=== PATIENT | female | born 1935 | race Caucasian/White ===

== ENCOUNTER 2018-05-14 11:54 | Inpatient (IN) ==
[2018-05-14] MEDS ORDERED: Ondansetron ODT 4 MG TAB.RAPDIS SL PRN (14:25)
[2018-05-14] MEDS ORDERED: Acetaminophen 325 MG TABLET PO PRN (16:02)
[2018-05-14] MEDS: Apixaban 5 MG TABLET PO SCH (20:40)
[2018-05-14] MEDS: cephALEXin 500 MG CAPSULE PO SCH (20:40)
[2018-05-15 05:38] LABS: Basophils % 0.5 %; Eosinophils # 0.3 K/mcL (0.0-0.6); Hematocrit 31.7 % (35.3-44.9); Hemoglobin 10.4 g/dL (11.5-15.4); Immature Granulocytes % 0.9 % (0-4); Lymphocytes # 0.6 K/mcL (0.6-4.6); Lymphocytes % 9.9 %; Mean Corpuscular HGB Conc 32.8 g/dL (31.6-35.5); Mean Corpuscular Hemoglobin 30.6 pg (28.0-33.3); Mean Corpuscular Volume 93.2 fL (83.0-100.0); Mean Platelet Volume 9.1 fL (9.4-12.4); Monocytes # 0.4 K/mcL (0.0-1.3); Monocytes % 6.1 %; Neutrophils # 5.1 K/mcL (1.6-8.9); Platelet Count 372 K/mcL (140-400); Red Cell Distribution Width 13.2 % (11.5-14.5); Segmented Neutrophils % 78.6 %
[2018-05-15 05:59] LABS: BUN/Creatinine Ratio 13 (6-26); Blood Urea Nitrogen 7 mg/dL (8-23); Calcium 8.2 mg/dL (8.6-10.3); Carbon Dioxide 30 mEq/L (23-29); Chloride 102 mEq/L (98-107); Glucose 92 mg/dL (70-105); Osmolality,Calculated 280 (280-300); Potassium 3.6 mEq/L (3.5-5.1); Sodium 136 mEq/L (136-145); eGFR For Non-African Americans > 60 (> 60)
[2018-05-15] MEDS: Diltiazem CD (24hr) 180 MG CAPSULE PO SCH (11:22)
[2018-05-15] MEDS: Apixaban 5 MG TABLET PO SCH ×2 (11:22→21:29)
[2018-05-15] MEDS: cephALEXin 500 MG CAPSULE PO SCH ×2 (11:22→21:30)
--- NOTE | 2018-05-15 11:25 | Internal Med History&Physical ---
Addendum entered and electronically signed by Raquel Rey 05/20/18 15:52: For this encounter, I have reviewed the MACHINING ASSOCIATE documentation, treatment plan, and medical decision making; and I have had face to face time with this patient. Addendum entered and electronically signed by Raquel Rey 05/15/18 16:55: I have personally performed a face to face evaluation on this patient. I have reviewed and agree with the care plan. Pt has recent successful surgical repair of SBO here for rehab swing she is not eating well and has low bmi she says she feels hungry today but edentulous so hard to chew foods will order soft diet pt to bring in her foot brace use here that she has for chronic left foot drop she is tolerating her new abixaban for a fib no bleeding probs prior to recent sbo pt states did not take medications Original Note: Date of Encounter: 05/15/18 Time of Encounter: 11:23 Assessment and Plan (1) Small bowel obstruction due to adhesions Current visit: Yes Status: Acute Patient was surgically treated at [facility] with a exploratory lap and lysis of adhesions due to a small bowel obstruction. Patient recovered well and currently admitted to this facility for rehabilitation due to her deconditioning. Patient currently denies any nausea or discomforts. Surgical incision appears healthy. Patient does state she has had no BM in the last few days, but noted normal bowel sounds. We will review patient's current laxatives. Patient being evaluated by physical therapy with recommendations pending. We will continue with current plan of care. (2) GERD (gastroesophageal reflux disease) Current visit: No Status: Chronic No current issues. We will continue with current medications. Qualifiers: Esophagitis presence: esophagitis presence not specified Qualified Code(s): K21.9 - Gastro-esophageal reflux disease without esophagitis (3) Atrial fibrillation with RVR Current visit: No Status: Acute No acute issues. Currently patient's heart rate appears to be regular with a controlled rate less than 100. We will continue with current Cardizem. Vital signs stable. He denies any palpitations or chest discomforts. (4) Hypertension Current visit: No Status: Chronic Vital signs stable. We will continue with current medications. Qualifiers: Hypertension type: essential hypertension Qualified Code(s): I10 - Essential (primary) hypertension Internal Medicine - H&P: HPI Chief complaint: Small bowel obstruction Admitted From: Hospital to Hospital Transfer Plans for Post Hospital Care: Home History of present illness: Ms. Price is a 82 year old female , who was admitted to this facility due to deconditioning secondary to having a exploratory laparotomy resolving and lysis of adhesions. Patient was admitted at [facility] due to small bowel obstruction which progressed to surgical intervention. Patient also was treated for acute atrial fibrillation during her stay at [facility], which was resolved after starting on Cardizem. Patient continues on oral Cardizem at this time Patient currently is recovering well and currently denies any discomforts or shortness of breath. Denies any chest discomforts or palpitations. Patient does have complaint of no BM in several days but states that she has been passing flatus. Patient currently is being evaluated by PT/OT with recommendations pending. Afebrile. Past Med Surg Social Fam HX - Past Medical History Medical history: no medical history, atrial fibrillation Additional medical history: bowel obstruction with surgical repair Psychiatric history: no psych history - Past Surgical History Surgical History: non-contributory - Social History Smoking Status: Never smoker Smokeless Tobacco Status: No Alcohol use: none Drug use: none - Family History Mother Living Status: Hx Family Cancer: Yes (blood cancer) Father Living Status: Hx Family Cancer: Yes (prostate) Brother Living Status: Internal Medicine - H&P: Meds Apixaban [Eliquis] 2.5 mg PO BID 30 Days #60 tablet 05/11/18 [Rx] Diltiazem CD (24hr) [Cardizem CD] 180 mg PO DAILY 30 Days #30 cap.er.24h 05/11/18 [Rx] Ondansetron ODT [Zofran ODT] 4 mg SL Q6HR PRN 30 Days #120 tab.rapdis 05/11/18 [Rx] cephALEXin [Keflex] 500 mg PO BID 6 Days #12 capsule 05/11/18 [Rx] Allergy/AdvReac Type Severity Reaction Status Date / Time No Known Allergies Allergy Verified 04/23/18 09:22 All Systems PM: A 10-system review of systems was performed and is negative for pertinent findings except as documented above in the HPI. - Constitutional Constitutional: no chills, no fever(s), no night sweats - EENT Eyes: no change in vision, no discharge, no pain, no photophobia Ears: no ear discharge, no ear pain, no tinnitus Nose, mouth and throat: no dysphagia, no nasal discharge, no neck pain, no sore throat - Cardiovascular Cardiovascular ROS IM: as per HPI, no chest pain, no diaphoresis, no dyspnea, no lightheadedness, no palpitations, no syncope - Respiratory Respiratory: as per HPI, no cough, no dyspnea, no wheezing, no excessive phlegm production - Gastrointestinal Gastrointestinal: as per HPI, no abdominal pain, no diarrhea, no hematemesis, no hematochezia, no melena, no nausea, no vomiting - Genitourinary Genitourinary: no change in urinary stream, no dysuria, no flank pain, no hematuria - Musculoskeletal Musculoskeletal ROS IM: no numbness, no tingling - Integumentary Integumentary IM: no rash, no unusual bruising - Neurological Neurological ROS: no confusion, no convulsions, no focal weakness, no numbness, no tingling, no tremor(s) - Hematologic/Lymphatic Hematologic/Lymphatic: no easy bruising - Constitutional Vitals: Temp Pulse Resp BP Pulse Ox 98.9 F 80 16 116/67 98 05/15/18 10:55 05/15/18 10:55 05/15/18 10:55 05/15/18 10:55 05/15/18 10:55 General appearance: Present: A&O X 3, pleasant - Head Head exam: Present: atraumatic, normocephalic - Eye Eye exam: Present: PERRL, conjuntiva pink, sclera anicteric Pupils: Present: PERRL - Neck Neck exam general surgery: Present: supple, trachea midline. Absent: lymphadenopathy - Respiratory Respiratory exam: Present: CTAB. Absent: accessory muscle use, rales, rhonchi, wheezes - Cardiovascular Cardiovascular exam: Present: RRR, +S1, +S2. Absent: diastolic murmur, gallop, rubs, systolic murmur Additional comments: Vision currently has regular pulse with controlled rate less than 100 - GI/Abdominal GI/Abdominal exam: Present: normal bowel sounds, soft, no peritoneal signs. Absent: distended, tenderness Additional comments: Abdomen remains soft and nondistended with bowel sounds heard in all quadrants. Midline surgical incision appears dry and intact and healing well. - Extremities Exam Extremities exam: Present: warm, radial pulses palpable and symmetrical. Absent: calf tenderness, cyanotic, pedal edema - Neurological Exam Neurological exam: Present: CN II-XII intact, oriented X3, no focal deficits. Absent: pronater drift, facial droop, speech deficit - Skin Skin exam: Present: dry, intact Internal Med - H&P Results - Labs CBC & Chem 7: 05/15/18 05:20 05/15/18 05:20 Labs: Short CBC 05/15/18 Range/Units 05:20 WBC 6.4 (4.3-11.1) K/mcL Hgb 10.4 L (11.5-15.4) g/dL Hct 31.7 L (35.3-44.9) % Plt Count 372 (140-400) K/mcL Neutrophils # 5.1 (1.6-8.9) K/mcL BMP 05/15/18 05:20 Sodium 136 Potassium 3.6 Chloride 102 Carbon Dioxide 30 H BUN 7 L Creatinine 0.56 L Glucose 92 Calcium 8.2 L
[2018-05-15] MEDS ORDERED: Sennosides 8.6 MG TABLET PO SCH (21:00)
[2018-05-16 05:03] LABS: Hematocrit 30.4 % (35.3-44.9); Hemoglobin 10.1 g/dL (11.5-15.4); Mean Corpuscular HGB Conc 33.2 g/dL (31.6-35.5); Mean Corpuscular Hemoglobin 30.6 pg (28.0-33.3); Mean Corpuscular Volume 92.1 fL (83.0-100.0); Mean Platelet Volume 9.2 fL (9.4-12.4); Platelet Count 372 K/mcL (140-400); Red Cell Distribution Width 13.2 % (11.5-14.5)
[2018-05-16 05:18] LABS: Alanine Aminotransferase 36 Units/L (7-52); Albumin 2.5 g/dL (3.5-5.7); Alkaline Phosphatase 185 Units/L (34-104); Aspartate Amino Transferase 28 Units/L (13-39); BUN/Creatinine Ratio 15 (6-26); Bilirubin,Total 0.5 mg/dL (0.3-1.0); Blood Urea Nitrogen 8 mg/dL (8-23); Carbon Dioxide 30 mEq/L (23-29); Chloride 102 mEq/L (98-107); Globulin 2.6 g/dL (2.4-3.5); Glucose 94 mg/dL (70-105); Magnesium 1.9 mg/dL (1.6-2.6); Osmolality,Calculated 280 (280-300); Potassium 3.6 mEq/L (3.5-5.1); Sodium 136 mEq/L (136-145); Total Protein 5.1 g/dL (6.4-8.9); eGFR For Non-African Americans > 60 (> 60)
[2018-05-16] MEDS: Sennosides 8.6 MG TABLET PO PRN (09:53)
[2018-05-16] MEDS: cephALEXin 500 MG CAPSULE PO SCH ×2 (09:53→23:05)
[2018-05-16] MEDS: Apixaban 5 MG TABLET PO SCH ×2 (09:53→23:06)
[2018-05-16] MEDS: Diltiazem CD (24hr) 180 MG CAPSULE PO SCH (09:53)
--- NOTE | 2018-05-16 10:59 | Internal Med Progress Note ---
Addendum entered and electronically signed by Raquel Rey 05/20/18 15:49: For this encounter, I have reviewed the KENNEL SUPERVISOR documentation, treatment plan, and medical decision making; and I have had face to face time with this patient. Original Note: Date of Encounter: 05/16/18 Time of Encounter: 10:56 - Assessment and plan (1) Small bowel obstruction due to adhesions Current Visit: Yes Status: Acute Assessment and plan: No acute issues. Patient's surgical incision remains dry and intact and appears healthy. Patient has been eating well and has been passing gas and had a BM yesterday. Abdomen appears healthy. We will continue with current plan of care. Physical therapy progressing well. Afebrile (2) GERD (gastroesophageal reflux disease) Current Visit: No Status: Chronic Assessment and plan: No acute issues. Patient denies any reflux. We will continue with current medications. Qualifiers: Esophagitis presence: esophagitis presence not specified Qualified Code(s): K21.9 - Gastro-esophageal reflux disease without esophagitis (3) Atrial fibrillation with RVR Current Visit: No Status: Acute Assessment and plan: No acute issues. Patient's heart rate remains with a ventricular controlled rate less than 100. Patient continues on Cardizem. Vital signs stable (4) Hypertension Current Visit: No Status: Chronic Assessment and plan: Vital signs stable. We will continue with current medications. Qualifiers: Hypertension type: essential hypertension Qualified Code(s): I10 - Essential (primary) hypertension (5) Acute urinary retention Current Visit: No Status: Acute Assessment and plan: Patient continues a Dickerson catheter placed with cardiology urine received. Patient has follow-up with urology in the upcoming week. - Time Spent With Patient less than 15 minutes - Subjective Interval history: Appears relaxed and currently denies any discomforts or shortness of breath. Patient states that she has been eating well. Patient states she had a bowel movement yesterday and has been passing gas. Patient states that physical therapy has been progressing well for her. - Constitutional Vitals: Temp Pulse Resp BP Pulse Ox 98.7 F 81 12 125/55 95 05/16/18 07:18 05/16/18 07:18 05/16/18 07:18 05/16/18 07:18 05/16/18 07:18 General appearance: Present: A&O X 3, pleasant - Head Head exam: Present: atraumatic, normocephalic - Eye Eye exam: Present: PERRL, conjuntiva pink, sclera anicteric Pupils: Present: PERRL - Neck Neck exam general surgery: Present: supple, trachea midline. Absent: lymphadenopathy - Respiratory Respiratory exam: Present: CTAB. Absent: accessory muscle use, rales, rhonchi, wheezes - Cardiovascular Cardiovascular exam: Present: RRR, +S1, +S2. Absent: diastolic murmur, gallop, rubs, systolic murmur - GI/Abdominal GI/Abdominal exam: Present: normal bowel sounds, soft, no peritoneal signs. Absent: distended, tenderness Additional comments: Midline surgical incision appears dry and intact. Abdomen remains soft and nondistended with bowel sounds all quadrants. - Extremities Exam Extremities exam: Present: warm, radial pulses palpable and symmetrical. Absent: calf tenderness, cyanotic, pedal edema - Neurological Exam Neurological exam: Present: CN II-XII intact, oriented X3, no focal deficits. Absent: pronater drift, facial droop, speech deficit - Skin Skin exam: Present: dry, intact Internal Medicine: Result - Labs CBC & Chem 7: 05/16/18 04:29 05/16/18 04:29 Labs: Short CBC 05/16/18 Range/Units 04:29 WBC 5.9 (4.3-11.1) K/mcL Hgb 10.1 L (11.5-15.4) g/dL Hct 30.4 L (35.3-44.9) % Plt Count 372 (140-400) K/mcL BMP 05/16/18 04:29 Sodium 136 Potassium 3.6 Chloride 102 Carbon Dioxide 30 H BUN 8 Creatinine 0.54 L Glucose 94 Calcium 8.0 L Liver Function 05/16/18 Range/Units 04:29 Total Bilirubin 0.5 (0.3-1.0) mg/dL AST 28 (13-39) Units/L ALT 36 (7-52) Units/L Alkaline Phosphatase 185 H (34-104) Units/L Albumin 2.5 L (3.5-5.7) g/dL Consult Discharge Plan - Plan Referrals: Florentino Gutierrez DO [Partnered Physician] - 06/13/18 11:30 am ([facility] follow up Afib) NONE,PCP [Primary Care Provider] -
[2018-05-17] MEDS: Diltiazem CD (24hr) 180 MG CAPSULE PO SCH (08:47)
[2018-05-17] MEDS: cephALEXin 500 MG CAPSULE PO SCH ×2 (08:47→19:49)
[2018-05-17] MEDS: Apixaban 5 MG TABLET PO SCH ×2 (08:47→19:49)
--- NOTE | 2018-05-17 12:33 | Internal Med Progress Note ---
Addendum entered and electronically signed by Raquel Rey 05/20/18 15:49: For this encounter, I have reviewed the TRUCKER HAND documentation, treatment plan, and medical decision making; and I have had face to face time with this patient. Original Note: Date of Encounter: 05/17/18 Time of Encounter: 12:31 - Assessment and plan (1) Small bowel obstruction due to adhesions Current Visit: Yes Status: Acute Assessment and plan: No acute issues. Patient's surgical incision remains dry and intact and appears healthy. Patient has been eating well and has been passing gas and had a BM yesterday. Abdomen appears healthy. We will continue with current plan of care. Physical therapy progressing well. Afebrile (2) Atrial fibrillation with RVR Current Visit: No Status: Acute (3) Hypertension Current Visit: No Status: Chronic Assessment and plan: Vital signs stable. We will continue with current medications. Qualifiers: Hypertension type: essential hypertension Qualified Code(s): I10 - Essential (primary) hypertension (4) Acute urinary retention Current Visit: No Status: Acute Assessment and plan: Patient continues a Dickerson catheter placed due to acute urinary retention. Urine remains clear yellow. Patient has follow-up with urology today. (5) Hemiparesis Current Visit: Yes Status: Acute Assessment and plan: Patient noted to have foot drop on the left with muscle strength is 3+/5. Patient also noted to have slight weakness on the left arm at 4/5 for both flexion and extension. Patient states that she experienced an onset of these symptoms during the early summer months and at that time did not seek any medical evaluation. Patient currently failure with a brace to the left ankle and states that her ambulation has improved greatly. We will discuss with Dr. Rey for further evaluation. No other acute neurological deficits noted on exam. Patient was so history of CVA documented per medical records Qualifiers: Hemiparesis etiology: unspecified Hemiparesis laterality: left nondominant side Qualified Code(s): G81.94 - Hemiplegia, unspecified affecting left nondominant side - Time Spent With Patient less than 15 minutes - Subjective Interval history: Appears relaxed and currently denies any discomforts or shortness of breath. Patient continues to have left foot drop and slight left hemiparesis. Patient states that she experienced this foot drop and left arm weakness since early last summer. Patient states she did not seek medical evaluation at that time. Patient was fitted with a brace for the left ankle and states that she is able to ambulate much easier. Patient currently is leaving for follow-up with urology for evaluation of removal of Dickerson catheter, which was left in place due to urinary retention - Constitutional Vitals: Temp Pulse Resp BP Pulse Ox 98.2 F 80 18 134/57 96 05/17/18 07:00 05/17/18 07:00 05/17/18 07:00 05/17/18 07:00 05/17/18 07:00 General appearance: Present: A&O X 3, pleasant - Head Head exam: Present: atraumatic, normocephalic - Eye Eye exam: Present: PERRL, conjuntiva pink, sclera anicteric Pupils: Present: PERRL - Neck Neck exam general surgery: Present: supple, trachea midline. Absent: lymphadenopathy - Respiratory Respiratory exam: Present: CTAB. Absent: accessory muscle use, rales, rhonchi, wheezes - Cardiovascular Cardiovascular exam: Present: RRR, +S1, +S2. Absent: diastolic murmur, gallop, rubs, systolic murmur - GI/Abdominal GI/Abdominal exam: Present: normal bowel sounds, soft, no peritoneal signs. Absent: distended, tenderness Additional comments: Abdomen with midline surgical incision remains dry and intact. Abdomen remains soft, nontender with bowel sounds heard in all quadrants. - Extremities Exam Extremities exam: Present: warm, radial pulses palpable and symmetrical. Absent: calf tenderness, cyanotic, pedal edema - Neurological Exam Neurological exam: Present: CN II-XII intact, oriented X3. Absent: pronater drift, facial droop, speech deficit Additional comments: Patient with left hemiparesis with LUE 4+/5 MS and left dorsiflexion at 3+/5. All other extremities are 5/5 MS. - Skin Skin exam: Present: dry, intact Internal Medicine: Result - Labs CBC & Chem 7: 05/16/18 04:29 05/16/18 04:29 Consult Discharge Plan - Plan Referrals: Florentino Gutierrez DO [Partnered Physician] - 06/13/18 11:30 am ([facility] follow up Afib) NONE,PCP [Primary Care Provider] -
[2018-05-18] MEDS: Apixaban 5 MG TABLET PO SCH ×2 (08:06→20:38)
[2018-05-18] MEDS: cephALEXin 500 MG CAPSULE PO SCH ×2 (08:06→20:38)
[2018-05-18] MEDS: Diltiazem CD (24hr) 180 MG CAPSULE PO SCH (08:06)
--- NOTE | 2018-05-18 09:53 | Internal Med Progress Note ---
Addendum entered and electronically signed by Raquel Rey 05/20/18 15:48: For this encounter, I have reviewed the HIDE AND SKIN FLESHING MACHINE OPERATOR documentation, treatment plan, and medical decision making; and I have had face to face time with this patient. Original Note: Date of Encounter: 05/18/18 Time of Encounter: 09:51 - Assessment and plan (1) Small bowel obstruction due to adhesions Current Visit: Yes Status: Acute Assessment and plan: No acute issues. Patient's surgical incision remains dry and intact and appears healthy. Patient states that her pain is well-controlled with current medications. Patient denies any nausea or abdominal cramping. Patient has had good oral intake (2) Atrial fibrillation with RVR Current Visit: No Status: Acute Assessment and plan: No acute issues. Patient's heart rate remains with a ventricular controlled rate less than 100. Patient continues on Cardizem. Vital signs stable (3) Hypertension Current Visit: No Status: Chronic Assessment and plan: Vital signs stable. We will continue with current medications. Qualifiers: Hypertension type: essential hypertension Qualified Code(s): I10 - Essential (primary) hypertension (4) Acute urinary retention Current Visit: No Status: Acute Assessment and plan: Patient continues a Dickerson catheter placed due to acute urinary retention. Urine remains clear yellow. Patient had follow-up with urology yesterday with recommendations to keep Dickerson catheter for more week before reattempting movable - Time Spent With Patient less than 15 minutes - Subjective Interval history: Patient appears relaxed currently denies any discomforts or shortness of breath. Patient was seen by urology yesterday and had recommendations continue Dickerson catheter for 1 more week and repeat follow-up. Patient states that her physical therapy has been progressing well. - Constitutional Vitals: Temp Pulse Resp BP Pulse Ox 97.6 F 90 17 147/71 96 05/18/18 08:00 05/18/18 08:00 05/18/18 08:00 05/18/18 08:00 05/18/18 08:00 General appearance: Present: A&O X 3, pleasant - Head Head exam: Present: atraumatic, normocephalic - Eye Eye exam: Present: PERRL, conjuntiva pink, sclera anicteric Pupils: Present: PERRL - Neck Neck exam general surgery: Present: supple, trachea midline. Absent: lymphadenopathy - Respiratory Respiratory exam: Present: CTAB. Absent: accessory muscle use, rales, rhonchi, wheezes - Cardiovascular Cardiovascular exam: Present: RRR, +S1, +S2. Absent: diastolic murmur, gallop, rubs, systolic murmur - GI/Abdominal GI/Abdominal exam: Present: normal bowel sounds, soft, no peritoneal signs. Absent: distended, tenderness Additional comments: Midline surgical incision appears dry and intact and healing well. Abdomen remains soft, nontender with bowel sounds heard all quadrants - Additional comments: Dickerson catheter remains in place with clear yellow urine received. - Extremities Exam Extremities exam: Present: warm, radial pulses palpable and symmetrical. Absent: calf tenderness, cyanotic, pedal edema - Neurological Exam Neurological exam: Present: CN II-XII intact, oriented X3, no focal deficits. Absent: pronater drift, facial droop, speech deficit - Skin Skin exam: Present: dry, intact Internal Medicine: Result - Labs CBC & Chem 7: 05/16/18 04:29 05/16/18 04:29 Consult Discharge Plan - Plan Referrals: Florentino Gutierrez DO [Partnered Physician] - 06/13/18 11:30 am ([facility] follow up Afib) NONE,PCP [Primary Care Provider] -
[2018-05-19] MEDS: Apixaban 5 MG TABLET PO SCH ×2 (08:36→19:56)
[2018-05-19] MEDS: cephALEXin 500 MG CAPSULE PO SCH ×2 (08:36→19:56)
[2018-05-19] MEDS: Diltiazem CD (24hr) 180 MG CAPSULE PO SCH (08:36)
[2018-05-19] MEDS: Sennosides 8.6 MG TABLET PO PRN (08:37)
--- NOTE | 2018-05-19 19:21 | Internal Med Progress Note ---
Date of Encounter: 05/19/18 Time of Encounter: 15:20 - Subjective Interval history: - Assessment and plan (1) Small bowel obstruction due to adhesions Current Visit: Yes Status: Acute Assessment and plan: No acute issues. pt has been deconditioned after surgery. She was also not eating. Now she is eating much better and doing therapy. Patient's surgical incision remains dry and intact and appears healthy. Patient states that her pain is well-controlled with current medications. Patient denies any nausea or abdominal cramping. pt reports feeling she is improving. (2) Atrial fibrillation with RVR Current Visit: No Status: Acute Assessment and plan: No acute issues. Patient's heart rate remains with a ventricular controlled rate less than 100. Patient continues on Cardizem. Vital signs stable no chest pain (3) Hypertension Current Visit: No Status: Chronic Assessment and plan: Vital signs stable. We will continue with current medications. Denies headache Qualifiers: Hypertension type: essential hypertension Qualified Code(s): I10 - Essential (primary) hypertension (4) Acute urinary retention Current Visit: No Status: Acute Assessment and plan: Patient continues a Dickerson catheter placed due to acute urinary retention. Urine remains clear yellow. Patient had follow-up with urology recently and with recommendations to keep Dickerson catheter for more week before reattempting voiding trial. Pt denies dysuria. Afebrile. no abd pain - Time Spent With Patient less than 15 minutes - Subjective Interval history: Patient appears relaxed currently denies any discomforts or shortness of breath. Patient was seen by urology recently and had recommendations continue Dickerson catheter for 1 more week and repeat follow-up. void trail . Patient states that her physical therapy has been progressing well. - Constitutional Vitals: Temp Pulse Resp BP Pulse Ox 97.6 F 90 17 147/71 96 05/18/18 08:00 05/18/18 08:00 05/18/18 08:00 05/18/18 08:00 05/18/18 08:00 General appearance: Present: A&O X 3, pleasant - Head Head exam: Present: atraumatic, normocephalic - Eye Eye exam: Present: PERRL, conjuntiva pink, sclera anicteric Pupils: Present: PERRL - Neck Neck exam general surgery: Present: supple, trachea midline. Absent: lymphadenopathy - Respiratory Respiratory exam: Present: CTAB. Absent: accessory muscle use, rales, rhonchi, wheezes - Cardiovascular Cardiovascular exam: Present: RRR, +S1, +S2. Absent: diastolic murmur, gallop, rubs, systolic murmur - GI/Abdominal GI/Abdominal exam: Present: normal bowel sounds, soft, no peritoneal signs. Absent: distended, tenderness Additional comments: Midline surgical incision appears dry and intact and healing well. Abdomen remains soft, nontender with bowel sounds heard all quadrants - Additional comments: Dickerson catheter remains in place with clear yellow urine received. - Extremities Exam Extremities exam: Present: warm, radial pulses palpable and symmetrical. Absent: calf tenderness, cyanotic, pedal edema - Neurological Exam Neurological exam: Present: CN II-XII intact, oriented X3, no focal deficits. Absent: pronater drift, facial droop, speech deficit - Skin Skin exam: Present: dry, intact - Constitutional Vitals: Temp Pulse Resp BP Pulse Ox 98.2 F 78 16 148/70 97 05/19/18 07:15 05/19/18 07:15 05/19/18 07:15 05/19/18 07:15 05/19/18 07:15 General appearance: Present: A&O X 3, pleasant Internal Medicine: Result - Labs CBC & Chem 7: 05/16/18 04:29 05/16/18 04:29 Consult Discharge Plan - Plan Referrals: Florentino Gutierrez DO [Partnered Physician] - 06/13/18 11:30 am ([facility] follow up Afib) NONE,PCP [Primary Care Provider] -
[2018-05-20] MEDS: Apixaban 5 MG TABLET PO SCH ×2 (09:11→20:01)
[2018-05-20] MEDS: Diltiazem CD (24hr) 180 MG CAPSULE PO SCH (09:11)
[2018-05-20] MEDS: cephALEXin 500 MG CAPSULE PO SCH ×2 (09:11→20:01)
--- NOTE | 2018-05-20 14:43 | Internal Med Progress Note ---
Date of Encounter: 05/20/18 Time of Encounter: 14:00 - Subjective Interval history: - Assessment and plan (1) Small bowel obstruction due to adhesions Current Visit: Yes Status: Acute Assessment and plan: No acute issues. pt has been deconditioned after surgery. She was also not eating. Today she shows much improvement Now she is eating much better, wanted a soft diet, and and doing therapy. Patient's surgical incision remains dry and intact and appears healthy. Patient states that her pain is well-controlled with current medications. Patient denies any nausea or abdominal cramping. pt reports feeling she is improving. Her elderly is visiting today (2) Atrial fibrillation with RVR Current Visit: No Status: Acute Assessment and plan: No acute issues. Patient's heart rate remains with a ventricular controlled rate less than 100. Patient continues on Cardizem. Vital signs stable no chest pain (3) Hypertension Current Visit: No Status: Chronic Assessment and plan: Vital signs stable. We will continue with current medications. Denies headache Qualifiers: Hypertension type: essential hypertension Qualified Code(s): I10 - Essential (primary) hypertension (4) Acute urinary retention Current Visit: No Status: Acute Assessment and plan: Patient continues a Dickerson catheter placed due to acute urinary retention. Denies dysuria. Urine remains clear yellow. Patient had follow-up with urology recently and with recommendations to keep Dickerson catheter for more week before reattempting voiding trial. Kidney function unchanged. Afebrile. no abd pain - Time Spent With Patient less than 15 minutes - Subjective Interval history: Patient appears relaxed currently denies any discomforts or shortness of breath. Patient was seen by urology recently and had recommendations continue Dickerson catheter for 1 more week and repeat follow-up. void trail . Patient states that her physical therapy has been progressing well. - Constitutional Vitals: Temp Pulse Resp BP Pulse Ox 97.6 F 90 17 147/71 96 05/18/18 08:00 05/18/18 08:00 05/18/18 08:00 05/18/18 08:00 05/18/18 08:00 General appearance: Present: A&O X 3, pleasant - Head Head exam: Present: atraumatic, normocephalic - Eye Eye exam: Present: PERRL, conjuntiva pink, sclera anicteric Pupils: Present: PERRL - Neck Neck exam general surgery: Present: supple, trachea midline. Absent: lymphadenopathy - Respiratory Respiratory exam: Present: CTAB. Absent: accessory muscle use, rales, rhonchi, wheezes - Cardiovascular Cardiovascular exam: Present: RRR, +S1, +S2. Absent: diastolic murmur, gallop, rubs, systolic murmur - GI/Abdominal GI/Abdominal exam: Present: normal bowel sounds, soft, no peritoneal signs. Absent: distended, tenderness Additional comments: Midline surgical incision appears dry and intact and healing well. Abdomen remains soft, nontender with bowel sounds heard all quadrants - Additional comments: Dickerson catheter remains in place with clear yellow urine received. - Extremities Exam Extremities exam: Present: warm, radial pulses palpable and symmetrical. Absent: calf tenderness, cyanotic, pedal edema - Neurological Exam Neurological exam: Present: CN II-XII intact, oriented X3, no focal deficits. Absent: pronater drift, facial droop, speech deficit - Skin Skin exam: Present: dry, intact - Constitutional Vitals: Temp Pulse Resp BP Pulse Ox 98.6 F 82 16 138/72 97 05/20/18 06:00 05/20/18 06:00 05/20/18 06:00 05/20/18 06:00 05/20/18 06:00 General appearance: Present: A&O X 3, pleasant Internal Medicine: Result - Labs CBC & Chem 7: 05/16/18 04:29 05/16/18 04:29 Consult Discharge Plan - Plan Referrals: Florentino Gutierrez DO [Partnered Physician] - 06/13/18 11:30 am ([facility] follow up Afib) NONE,PCP [Primary Care Provider] -
[2018-05-21] MEDS: cephALEXin 500 MG CAPSULE PO SCH ×2 (08:18→20:09)
[2018-05-21] MEDS: Diltiazem CD (24hr) 180 MG CAPSULE PO SCH (08:18)
[2018-05-21] MEDS: Apixaban 5 MG TABLET PO SCH ×2 (08:18→20:11)
--- NOTE | 2018-05-21 11:00 | Internal Med Progress Note ---
Addendum entered and electronically signed by Raquel Rey 05/21/18 17:03: I have personally performed a face to face evaluation on this patient. I have reviewed and agree with the care plan. Original Note: Date of Encounter: 05/21/18 Time of Encounter: 10:57 - Assessment and plan (1) UTI (urinary tract infection) Current Visit: Yes Status: Acute Assessment and plan: Continue Keflex. Denies urinary symptoms. Continue Dickerson catheter. Follow up with urology as scheduled. Qualifiers: Urinary tract infection type: site unspecified Hematuria presence: without hematuria Qualified Code(s): N39.0 - Urinary tract infection, site not specified (2) Atrial fibrillation with RVR Current Visit: Yes Status: Acute Assessment and plan: Ventricular rate less than 100. Continue Cardizem. (3) Small bowel obstruction Current Visit: Yes Status: Acute Assessment and plan: Abdominal incision healing. Appetite good. Bowels moving as normal. (4) Hypertension Current Visit: Yes Status: Chronic Assessment and plan: Controlled with current medication. Monitor blood pressure. Qualifiers: Hypertension type: essential hypertension Qualified Code(s): I10 - Essential (primary) hypertension - Time Spent With Patient less than 15 minutes - Subjective Interval history: Patient participating well with therapy. Continues to have fully catheter. Nursing staff teaching catheter care as she will go home with it. Follows up with urologist this . Denies shortness of breath, chest pain, fever, chills, nausea vomiting or diarrhea. On Keflex for urinary tract infection. - Constitutional Vitals: Temp Pulse Resp BP Pulse Ox 99.1 F 75 16 132/67 97 05/21/18 06:59 05/21/18 06:59 05/21/18 06:59 05/21/18 06:59 05/21/18 06:59 General appearance: Present: A&O X 3, pleasant - Head Head exam: Present: atraumatic, normocephalic - Eye Eye exam: Present: PERRL, conjuntiva pink, sclera anicteric Pupils: Present: PERRL - Neck Neck exam general surgery: Present: supple, trachea midline. Absent: lymphadenopathy - Respiratory Respiratory exam: Present: CTAB. Absent: accessory muscle use, rales, rhonchi, wheezes - Cardiovascular Cardiovascular exam: Present: irregular rhythm, +S1, +S2. Absent: diastolic murmur, gallop, rubs, systolic murmur - GI/Abdominal GI/Abdominal exam: Present: normal bowel sounds, soft, no peritoneal signs. Absent: distended, tenderness - Extremities Exam Extremities exam: Present: warm, radial pulses palpable and symmetrical. Absent: calf tenderness, cyanotic, pedal edema - Neurological Exam Neurological exam: Present: CN II-XII intact, oriented X3, no focal deficits. Absent: pronater drift, facial droop, speech deficit - Skin Skin exam: Present: dry, intact Internal Medicine: Result - Labs CBC & Chem 7: 05/16/18 04:29 05/16/18 04:29 Consult Discharge Plan - Plan Referrals: Florentino Gutierrez DO [Partnered Physician] - 06/13/18 11:30 am ([facility] follow up Afib) NONE,PCP [Primary Care Provider] -
[2018-05-22 05:49] LABS: Basophils % 0.5 %; Eosinophils # 0.1 K/mcL (0.0-0.6); Eosinophils % 2.4 %; Hematocrit 29.8 % (35.3-44.9); Hemoglobin 9.8 g/dL (11.5-15.4); Immature Granulocytes % 0.7 % (0-4); Lymphocytes # 1.2 K/mcL (0.6-4.6); Mean Corpuscular HGB Conc 32.9 g/dL (31.6-35.5); Mean Corpuscular Hemoglobin 30.3 pg (28.0-33.3); Mean Corpuscular Volume 92.3 fL (83.0-100.0); Mean Platelet Volume 8.8 fL (9.4-12.4); Monocytes # 0.6 K/mcL (0.0-1.3); Neutrophils # 3.5 K/mcL (1.6-8.9); Platelet Count 292 K/mcL (140-400); Red Blood Count 3.23 M/mcL (3.82-4.97); Red Cell Distribution Width 13.2 % (11.5-14.5); Segmented Neutrophils % 64.4 %
[2018-05-22 06:05] LABS: BUN/Creatinine Ratio 13 (6-26); Blood Urea Nitrogen 8 mg/dL (8-23); Calcium 8.5 mg/dL (8.6-10.3); Carbon Dioxide 31 mEq/L (23-29); Chloride 101 mEq/L (98-107); Glucose 96 mg/dL (70-105); Osmolality,Calculated 284 (280-300); Potassium 3.9 mEq/L (3.5-5.1); Sodium 138 mEq/L (136-145); eGFR For Non-African Americans > 60 (> 60)
[2018-05-22] MEDS: cephALEXin 500 MG CAPSULE PO SCH ×2 (08:21→20:30)
[2018-05-22] MEDS: Apixaban 5 MG TABLET PO SCH ×2 (08:21→20:30)
[2018-05-22] MEDS: Diltiazem CD (24hr) 180 MG CAPSULE PO SCH (08:21)
--- NOTE | 2018-05-22 11:22 | Internal Med Progress Note ---
Addendum entered and electronically signed by Raquel Rey 05/22/18 14:02: I have personally performed a face to face evaluation on this patient. I have reviewed and agree with the care plan. Pt is much improved and DC likely tomorrow. Original Note: Date of Encounter: 05/22/18 Time of Encounter: 11:20 - Assessment and plan (1) UTI (urinary tract infection) Current Visit: Yes Status: Acute Assessment and plan: Continue Keflex. Denies urinary symptoms. Continue Urena catheter. Follow up with urology as scheduled. Qualifiers: Urinary tract infection type: site unspecified Hematuria presence: without hematuria Qualified Code(s): N39.0 - Urinary tract infection, site not specified (2) Atrial fibrillation with RVR Current Visit: Yes Status: Acute Assessment and plan: Ventricular rate less than 100. Continue Cardizem. (3) Small bowel obstruction Current Visit: Yes Status: Acute Assessment and plan: Abdominal incision healing. Appetite good. Bowels moving as normal. (4) Hypertension Current Visit: Yes Status: Chronic Assessment and plan: Controlled with current medication. Monitor blood pressure. Qualifiers: Hypertension type: essential hypertension Qualified Code(s): I10 - Essential (primary) hypertension - Time Spent With Patient less than 15 minutes - Subjective Interval history: Patient participating well with therapy. Continues to have urena catheter. Nursing staff teaching catheter care as she will go home with it. Follows up w ith urologist this . Denies shortness of breath, chest pain, fever, chills, nausea vomiting or diarrhea. On Keflex for urinary tract infection. Planning for discharge tomorrow. Ambulating with Walker with standby assist. - Constitutional Vitals: Temp Pulse Resp BP Pulse Ox 98.1 F 81 16 127/68 95 05/22/18 07:00 05/22/18 07:00 05/22/18 07:00 05/22/18 07:00 05/22/18 07:00 General appearance: Present: A&O X 3, pleasant - Head Head exam: Present: atraumatic, normocephalic - Eye Eye exam: Present: PERRL, conjuntiva pink, sclera anicteric Pupils: Present: PERRL - Neck Neck exam general surgery: Present: supple, trachea midline. Absent: lymphadenopathy - Respiratory Respiratory exam: Present: CTAB. Absent: accessory muscle use, rales, rhonchi, wheezes - Cardiovascular Cardiovascular exam: Present: RRR, +S1, +S2. Absent: diastolic murmur, gallop, rubs, systolic murmur - GI/Abdominal GI/Abdominal exam: Present: normal bowel sounds, soft, no peritoneal signs. Absent: distended, tenderness - Extremities Exam Extremities exam: Present: warm, radial pulses palpable and symmetrical. Absent: calf tenderness, cyanotic, pedal edema - Neurological Exam Neurological exam: Present: CN II-XII intact, oriented X3, no focal deficits. Absent: pronater drift, facial droop, speech deficit - Skin Skin exam: Present: dry, intact Internal Medicine: Result - Labs CBC & Chem 7: 05/22/18 05:30 05/22/18 05:30 Labs: Short CBC 05/22/18 Range/Units 05:30 WBC 5.5 (4.3-11.1) K/mcL Hgb 9.8 L (11.5-15.4) g/dL Hct 29.8 L (35.3-44.9) % Plt Count 292 (140-400) K/mcL Neutrophils # 3.5 (1.6-8.9) K/mcL BMP 05/22/18 05:30 Sodium 138 Potassium 3.9 Chloride 101 Carbon Dioxide 31 H BUN 8 Creatinine 0.64 Glucose 96 Calcium 8.5 L Consult Discharge Plan - Plan Referrals: Florentino Gutierrez DO [Partnered Physician] - 06/13/18 11:30 am ([facility] follow up Afib) Catherine Gannon CNP [Advanced Practice Nurse] - 05/29/18 2:00 pm (Please arrive 15 minutes early to fill out new patient paperwork. Thank you.)
[2018-05-23 06:59] VITALS: BP 132/69
[2018-05-23] MEDS: Diltiazem CD (24hr) 180 MG CAPSULE PO SCH (09:07)
[2018-05-23] MEDS: cephALEXin 500 MG CAPSULE PO SCH (09:07)
[2018-05-23] MEDS: Apixaban 5 MG TABLET PO SCH (09:07)
--- NOTE | 2018-05-23 11:04 | Discharge Summary ---
Addendum entered and electronically signed by Raquel Rey 05/23/18 12:04: I have personally performed a face to face evaluation on this patient. I have reviewed and agree with the care plan. Original Note: Date of Encounter: 05/23/18 Time of Encounter: 11:01 - Discharge Diagnosis (1) UTI (urinary tract infection) Priority: Secondary Status: Acute Comments: Keflex completed. Follow up with urology as scheduled tomorrow. Patient going home with urena catheter. Qualifiers: Urinary tract infection type: site unspecified Hematuria presence: without hematuria Qualified Code(s): N39.0 - Urinary tract infection, site not specified (2) Atrial fibrillation with RVR Priority: Secondary Status: Acute Comments: Rate and rhythm stable. Continue current meds. Follow up with PCP. (3) Small bowel obstruction Priority: Primary Status: Acute Comments: Follow-up with surgeon as scheduled. Stable at this time. (4) Hypertension Priority: Secondary Status: Chronic Comments: Controlled with current medication. Monitor blood pressure. Follow up with PCP. Qualifiers: Hypertension type: essential hypertension Qualified Code(s): I10 - Essential (primary) hypertension Hospital course: Ms. Price is a 82 year old female discharging to home with . Has completed therapy goals. Able to ambulate with walker household distances. Had recent surgery for small bowel obstruction. Patient is to follow up with surgeon as scheduled and follow up with urology on May 24. Patient to go home with Urena catheter. Has completed a 7 course of antibiotics for UTI. Patient has demonstrated catheter care. Maintaining appetite and hydration. Bowels move this morning. Denies any pain or other complaints at this time. Discharge discussed with: patient, family, nurse, social work - Time Spent with Patient Total time spent providing and/or coordinating discharge services: Less than 30 minutes - Discharge Medications Home Medications: Apixaban [Eliquis] 2.5 mg PO BID 30 Days #60 tablet 05/23/18 [Rx] Diltiazem CD (24hr) [Cardizem CD] 180 mg PO DAILY 30 Days #30 cap.er.24h 05/23/18 [Rx] Polyethylene Glycol 3350 [MiraLAX] 17 gm PO DAILY powd.pack 05/23/18 [Rx] Allergies/Adverse Reactions: Allergy/AdvReac Type Severity Reaction Status Date / Time No Known Allergies Allergy Verified 04/23/18 09:22 Date of admission: 05/14/18 13:56 Primary care physician: PCP NONE Consults: 05/14/18 14:19 Consult to Occupational Therapy [CONS] Routine Comment: eval Reason for Consult: eval Does patient have active BEDREST order?: No Is patient medically & hemodynamically stable?: Yes Consult to Physical Therapy [CONS] Routine Comment: eval Reason for Consult: eval Does patient have active BEDREST order?: No Is patient medically & hemodynamically stable?: No Patient assessed for mobility or mobilized this visit?: No Consult to Recreational Therapy [CONS] Routine Comment: Consult to Wire Repairer [CONS] Routine Reason for SW Consult: d/c planning Discharging clinician: Raquel Rey Anticipated date of discharge: 05/23/18 - Constitutional Vitals: Temp Pulse Resp BP Pulse Ox 98.6 F 77 16 132/69 96 05/23/18 06:54 05/23/18 06:54 05/23/18 06:54 05/23/18 06:54 05/23/18 06:54 General appearance: Present: cooperative, A&O X 3, pleasant, no acute distress, answers questions appropriately - Head Head exam: Present: atraumatic, normocephalic - Eye Eye exam: Present: PERRL, conjuntiva pink, sclera anicteric Pupils: Present: PERRL - Neck Neck exam general surgery: Present: supple, trachea midline. Absent: lymphadenopathy - Respiratory Respiratory exam: Present: CTAB. Absent: accessory muscle use, rales, rhonchi, wheezes - Cardiovascular Cardiovascular exam: Present: RRR, +S1, +S2. Absent: diastolic murmur, gallop, rubs, systolic murmur - GI/Abdominal GI/Abdominal exam: Present: normal bowel sounds, soft, no peritoneal signs. Absent: distended, tenderness - Extremities Exam Extremities exam: Present: warm, radial pulses palpable and symmetrical. Absent: calf tenderness, cyanotic, pedal edema - Incison Comments: Abdominal incision well approximated. No drainage. - Neurological Exam Neurological exam: Present: CN II-XII intact, oriented X3, no focal deficits. Absent: pronater drift, facial droop, speech deficit - Skin Skin exam: Present: dry, intact - Patient Status Disposition: Home Health Service Condition: Good Functional capacity at discharge: uses cane/walker Overall status at discharge: patient is progressing back to baseline - Discharge Instructions Follow Up With: Florentino Gutierrez DO [Partnered Physician] - 06/13/18 11:30 am ([facility] follow up Afib) Catherine Gannon CNP [Advanced Practice Nurse] - 05/29/18 2:00 pm (Please arrive 15 minutes early to fill out new patient paperwork. Thank you.) - Diet and Activity Activity: as per physical therapy Diet: advance to your usual diet
--- NOTE | 2018-05-23 11:16 | Physician Discharge Referral ---
Home Health/Hosp Referral Info Transfer to: Home Health Provider in Charge Post Discharge: PCP - Diagnosis (1) UTI (urinary tract infection) Priority: Secondary Status: Resolved (2) Atrial fibrillation with RVR Priority: Primary Status: Acute (3) Small bowel obstruction Priority: Primary Status: Acute (4) Hypertension Priority: Secondary Status: Chronic - Respiratory Orders Smoking Cessation: Smoking cessation has been advised. For more information, call the [place] Tobacco Quit Line at 1-947-RKVE-NOW. - Diet/Nutrition Diet/Nutrition Orders: Regular - Activity Activity Orders: Walker - Services Needed Following services are medically necessary services: Nursing, Physical Therapy - Transfer Medications Prescriptions: Apixaban [Eliquis] 2.5 mg PO BID 30 Days #60 tablet Diltiazem CD (24hr) [Cardizem CD] 180 mg PO DAILY 30 Days #30 cap.er.24h Home Medications: Apixaban [Eliquis] 2.5 mg PO BID 30 Days #60 tablet 05/23/18 [Rx] Diltiazem CD (24hr) [Cardizem CD] 180 mg PO DAILY 30 Days #30 cap.er.24h 05/23/18 [Rx] Polyethylene Glycol 3350 [MiraLAX] 17 gm PO DAILY powd.pack 05/23/18 [Rx] Allergies/Adverse Reactions: Allergy/AdvReac Type Severity Reaction Status Date / Time No Known Allergies Allergy Verified 04/23/18 09:22 Certification: Further, I certify that my clinical findings support that this patient is homebound (i.e. absences from home require considerable and taxing effort and are for medical reasons or baptism services or infrequently or short duration when for other reasons) because: Homebound Reason: Patient requires assistance of a person or device to safely leave home, Post-surgery restriction and or conditions limit ability to leave home Attestation: My signature below is to certify that this patient is under my care and that I, or nurse practitioner, or a physician's patient services assistant working with me, has a [id number] encounter with this patient.
== END 2018-05-23 12:02 | disposition home health service (06) | DRG 949 ==
LOC: INPGRE 13:56